=== PATIENT | female | born 1990 | race Two or more races ===

== ENCOUNTER 2023-09-29 21:25 | Emergency (ER) | payer OTHER ==
[~2023-09-29] VITALS: Ht 157.5 cm; Wt 50.8 kg
[2023-09-29 23:06] LABS: HEMATOCRIT 38.6 % (36.0-45.00); HEMOGLOBIN 13.4 g/dL (12.0-15.00); MEAN CELL VOLUME 86.4 fL (80.00-100.00); MEAN CORPUSCULAR HEMOGLOBIN 29.9 pg (27.00-32.0); MEAN CORPUSCULAR HGB CONC 34.7 g/dl (32.0-36.0); PLATELET COUNT 215 K/uL (150-450); RED BLOOD COUNT 4.47 M/uL (4.00-6.00); RED CELL DISTRIBUTION WIDTH 13.2 % (11.5-14.5)
[2023-09-29 23:47] LABS: CALCIUM 9.3 mg/dL (8.5-10.1); CREATININE SERUM 0.54 mg/dL (0.55-1.02); GFR 130.02; POTASSIUM 4.22 mEq/L (3.5-5.1)
[2023-09-30 02:09] LABS: URINE APPEARANCE Cloudy; URINE BILIRRUBIN Negative (NEGATIVE); URINE BLOOD Large; URINE COLOR Yellow; URINE GLUCOSE Negative (NEGATIVE); URINE KETONE Trace (NEGATIVE); URINE LEUKOCYTE Negative; URINE NITRATE Negative; URINE PROTEIN Negative (NEGATIVE); URINE UROBILINOGEN 0.2 E.U./dl
[2023-09-30 02:12] LABS: URINE BACTERIA 976.2 uL (0.0-1933); URINE EPITHELIAL CELLS 20.7 uL (0.0-38.8); URINE RBC 48.5 uL (0.0-20.8); URINE WBC 3.8 uL (0.0-23.2)
== END 2023-09-30 15:44 | disposition home or self-care (01) ==
LOC: ER 21:25
PROVIDERS: Emergency Medicine
DX: O20.9 Hemorrhage in early pregnancy, unspecified (principal); Z3A.11 11 weeks gestation of pregnancy

== ENCOUNTER 2023-09-30 18:03 | Inpatient (IN) | payer OTHER ==
[~2023-09-30] VITALS: Ht 157.5 cm; Wt 50.8 kg
--- NOTE | 2023-09-30 18:11 | NUR ---
PTE ALERTA Y ORIENTADA POR TYREE ESFERAS CON BUEN PATRON RESPIRATORIO REFIERE QUE TUVO SANGRADO VAGINAL ABUNDANTE Y SE SALIO TEJIDO DE VAGINA POR EL CUAL PATEL PIENSA QUE PUDO SER EL FETO
--- NOTE | 2023-09-30 18:26 | NUR ---
SE ORIENTA PTE SOBRE ROXANA DE MUESTRAS LAS CUALES SE EXTRAEN BAJO MEDIDAS ASEPTICAS,SE NOTIFICA SONOGRAMA PENDIENTE.
[2023-09-30] MEDS ORDERED: RINGERS SOLUTION,LACTATED 1,000 ML IV SCH (20:30)
--- NOTE | 2023-09-30 23:17 | NUR ---
FEMINA ALERTA Y ORIENTADA EN FANNY POSICION MAS BAJA Y BARANDAS ELEVADAS POR SEGURIDAD. CANALIZACION PATENTE CON IVF'S TAMMY ORDEN MEDICA. PENDIENTE LABORATORIOS PARA 10/01/23 A LAS [address] Y PENDIENTE CONSULTA CON DR PAVON. SE ORIENTA A PACIENTE A PERMANECER NPO.
--- NOTE | 2023-10-01 04:41 | NUR ---
SE EDUCA A PTE SOBRE ROXANA DE MUESTRAS AL MOMENTO LA MISMA REFIERE ENTENDER. SE REALIZAN BAJO MEDIDAS ASPETICAS Y SE ENVIAN DE FORMA INMEDIATA A LAB.
[2023-10-01 05:15] LABS: HEMATOCRIT 35.6 % (36.0-45.00); HEMOGLOBIN 12.3 g/dL (12.0-15.00); MEAN CELL VOLUME 86.4 fL (80.00-100.00); MEAN CORPUSCULAR HEMOGLOBIN 29.9 pg (27.00-32.0); MEAN CORPUSCULAR HGB CONC 34.6 g/dl (32.0-36.0); PLATELET COUNT 204 K/uL (150-450); RED BLOOD COUNT 4.12 M/uL (4.00-6.00); RED CELL DISTRIBUTION WIDTH 13.2 % (11.5-14.5)
--- NOTE | 2023-10-01 07:03 | NUR ---
SE RECIBE PACIENTE ALERTA Y ORIENTADA X3 EN CAMA EN POSICION SEMI SENTADA CON BARANDAS ELEVADAS. AL MOMENTO PTE SE ENCUENTRA EN ESPERA DE CONSULTA CON DR. PAVON.
[2023-10-01] MEDS ORDERED: IBUprofen 800 MG TABLET PO PRN (14:00)
[2023-10-02] MEDS ORDERED: POVIDONE-IODINE 118 ML BOTT TOP ONE (12:15)
== END 2023-10-02 16:30 | disposition home or self-care (01) | DRG 779 ==
LOC: ER 18:05 → OB/GYN 10-01 10:29
PROVIDERS: General Practice; ADMIT Obstetrics & Gynecology; ATTEND Obstetrics & Gynecology
PROC: BU4CZZZ Ultrasonography of Uterus and Ovaries (ICD-10-PCS; 2023-10-01)
PROC: 10D17Z9 Manual Extraction of Products of Conception, Retained, Via Natural or Artificial Opening (ICD-10-PCS; principal; 2023-10-02 11:00)
DX: O02.1 Missed abortion (principal); Z20.822 Contact with and (suspected) exposure to COVID-19

== ENCOUNTER 2024-01-11 09:00 | Outpatient (CLI) | payer OTHER | END 2024-01-11 09:15 | disposition home or self-care (01) | LOC: PPH VACUNA 09:00 | PROVIDERS: ATTEND Emergency Medicine Pediatric Emergency Medicine | DX: Z23 Encounter for immunization (principal) ==

== ENCOUNTER 2024-07-31 16:37 | Emergency (ER) | payer OTHER ==
[~2024-07-31] VITALS: Ht 157.5 cm; Wt 50.8 kg
[2024-07-31] MEDS ORDERED: 0.9 % SODIUM CHLORIDE 1,000 ML IV SCH (19:30)
[2024-07-31 20:35] LABS: BASO % 0.9 % (0.1-1.2); EOS # 0.31 (0.04-0.54); EOS % 4.6 % (0.7-7.0); HEMATOCRIT 39.5 % (34.1-44.9); HEMOGLOBIN 13.5 g/dL (11.2-15.7); LYMPH # 1.25 (1.18-3.74); LYMPH % 18.4 % (19.3-53.1); MEAN CORPUSCULAR HEMOGLOBIN 28.6 pg (25.6-32.2); MONO # 0.46 (0.24-0.82); MONO % 6.8 % (4.7-12.5); NEUT # 4.69 (1.56-6.13); NEUT % 69.2 % (34.0-71.1); PLATELET COUNT 235 K/uL (163-369); RED BLOOD COUNT 4.72 M/uL (3.93-5.22); RED CELL DISTRIBUTION WIDTH 12.5 % (11.6-14.4)
[2024-07-31 20:48] LABS: POTASSIUM 3.96 mEq/L (3.5-5.1)
[2024-07-31 20:55] LABS: CALCIUM 9.2 mg/dL (8.5-10.1); CREATININE SERUM 0.56 mg/dL (0.55-1.02); GFR 123.92
[2024-07-31 21:47] LABS: PH,URINE 6.5 (5.0-8.0); URINE APPEARANCE Clear; URINE BILIRRUBIN Negative (NEGATIVE); URINE BLOOD Large; URINE COLOR Yellow; URINE GLUCOSE Negative (NEGATIVE); URINE KETONE Negative (NEGATIVE); URINE LEUKOCYTE Trace; URINE NITRATE Negative; URINE PROTEIN Negative (NEGATIVE); URINE UROBILINOGEN 0.2 E.U./dl
[2024-07-31 21:50] LABS: URINE BACTERIA 274.1 uL (0.0-1933); URINE EPITHELIAL CELLS 5.2 uL (0.0-38.8); URINE RBC 2013.3 uL (0.0-20.8); URINE WBC 11.7 uL (0.0-23.2)
== END 2024-07-31 22:34 | disposition home or self-care (01) ==
LOC: ER 16:50
PROVIDERS: Emergency Medicine
DX: O20.9 Hemorrhage in early pregnancy, unspecified (principal); Z3A.01 Less than 8 weeks gestation of pregnancy

== ENCOUNTER 2024-12-26 11:56 | Outpatient (CLI) | payer OTHER | END 2024-12-26 11:58 | disposition home or self-care (01) | LOC: PRENATAL 11:56 | PROVIDERS: ATTEND Obstetrics & Gynecology Maternal & Fetal Medicine | DX: O36.80X0 Pregnancy with inconclusive fetal viability, not applicable or unspecified (principal); Z36.82 Encounter for antenatal screening for nuchal translucency; Z14.8 Genetic carrier of other disease; O09.529 Supervision of elderly multigravida, unspecified trimester; Z3A.12 12 weeks gestation of pregnancy ==

== ENCOUNTER 2025-01-01 10:00 | Outpatient (CLI) | payer OTHER | END 2025-01-01 10:10 | disposition home or self-care (01) | LOC: PPH VACUNA 10:00 | PROVIDERS: ATTEND Emergency Medicine Pediatric Emergency Medicine | DX: Z23 Encounter for immunization (principal) ==

== ENCOUNTER → 2025-02-18 14:02 | Outpatient (CLI) | payer OTHER | END | disposition home or self-care (01) | LOC: PRENATAL 14:02 | PROVIDERS: ATTEND Obstetrics & Gynecology Maternal & Fetal Medicine | DX: O44.02 Complete placenta previa NOS or without hemorrhage, second trimester (principal); O09.522 Supervision of elderly multigravida, second trimester; Z3A.20 20 weeks gestation of pregnancy ==